=== PATIENT | male | born 1985 | race Caucasian/White ===

== ENCOUNTER 2016-12-18 18:42 | Emergency (ER) | payer OTHER ==
--- NOTE | 2016-12-18 19:52 | ED NURSING NOTES ---
Clinical Report - Nurses [facility] [place] [address] 12/18/2016 18:44 Patient: JAYMIE KING TRIAGE Triage time 18:49. Acuity: LEVEL 3. Chief Complaint: (LEFT FLANK PAIN). Alert. PIERCE COMA SCORE: Pierce Coma Scale: 15- eyes open spontaneously (4); best verbal response- oriented x 4 (5); best motor response- obeys commands (6). --18:54 Marguerite Mancilla R.N. 18:48 12/18/16. BP: 151/100. HR: 68. RR: 20. O2 saturation: 100%. Temp: 97.8 F (oral). Pain level now: 07/22. --18:54 Marguerite Mancilla R.N. Weight: 92.9 kg stated. Height/Length: 70 inches Per Patient. BMI: 29.4. --18:51 Marguerite Mancilla R.N. Medications Flomax Oral. Zofran Oral. --18:50 Marguerite Mancilla R.N. None. --18:51 Marguerite Mancilla R.N. Medication/allergy information source: the patient. --18:54 Marguerite Mancilla R.N. Allergies No Known Drug Allergy. --18:51 Marguerite Mancilla R.N. History Arrived by private vehicle. Historian: patient. Accompanied by family. Primary physician (none). Onset. (about 1 hour). Treatment [address] MONITOR: (Flomax, zofran). SOCIAL HX: Smoker- current status unknown (no). Occasional alcohol use. No drug use. FALL RISK ASSESSMENT: Fall risk assessment completed. No fall risk identified. FUNCTIONAL ASSESSMENT: Functional assessment: no impairments noted. LEARNING NEEDS ASSESSMENT: The learning needs assessment revealed no barriers. --18:54 Marguerite Mancilla R.N. PROBLEMS: Nephrolithiasis. --18:50 Marguerite Mancilla R.N. ADDITIONAL SURGERIES: no known surgeries. Assessment GENERAL / NEURO / PSYCH: The patient is awake and alert, is oriented and cooperative and appears uncomfortable. He has good eye contact. RESPIRATORY: Respirations not labored. SKIN: Skin is warm and dry. --18:54 Marguerite Mancilla R.N. Interventions ID band on patient. To treatment room. --18:54 Marguerite Mancilla R.N. PHYSICAL ASSESSMENT 18:57 12/18/16. Ambulatory to room. Patient gowned. GENERAL / NEURO / PSYCH: The patient is awake and alert, appears in pain and is oriented and cooperative. He has good eye contact. RESPIRATORY: Respirations not labored. SKIN: Skin is warm and dry. --18:57 Marguerite Mancilla R.N. NURSING PROGRESS NOTES 18:57 12/18/16. Pulse oximeter and NIBP monitor placed on patient. Patient gowned. Head of bed elevated. Call light placed in reach. Side rails up x 1. Bed placed in lowest position. Brakes of bed on. --18:57 Marguerite Mancilla R.N. 19:12/18/2016 Site #1 started via IV in the right antecubital space with an 18g angiocath; one attempt. Blood drawn: rainbow set. Labeled in the presence of the patient and sent to the lab. Saline lock flushed with 10 mL saline. --19:05 Sergio Martini R.N. 19:05 12/18/2016 Toradol IVP 30 mg given. via site #1. Allergies verified and confirmed 5 rights. IV patency established. IV site checked: no pain, redness, or swelling. IV flushed thoroughly pre- and post-medication administration. IVP given by RN. --19:05 Sergio Martini R.N. 19:49 12/18/2016 Dilaudid (HYDROmorphone HCl PF) IVP 1 mg given over 2 minute(s) via site #1. Allergies verified, confirmed 5 rights and sedative warning given to the patient. IV patency established. IV site checked: no pain, redness, or swelling. IV flushed thoroughly pre- and post-medication administration. IVP given by RN. --19:49 Sergio Martini R.N. Reassurance given. Call light placed in reach. Side rails up x 1. Bed placed in lowest position. Brakes of bed on. --19:50 Sergio Martini R.N. 19:50 12/18/16. BP: 132/75. HR: 86. RR: 16. O2 saturation: 99%. Pain level now: 05/21. --19:50 Sergio Martini R.N. 20:00. The patient is calm and resting quietly. SKIN: Skin is warm and dry. Skin color within normal limits. --20:04 Evan Chase R.N. DISPOSITION / DISCHARGE Departure time: 20:03. Condition at departure: stable. No learning barriers present. Discharge instructions provided and reviewed with the patient. Reviewed medication(s) side effects, precautions, dosing and course information. Prescription(s) given to the patient. Patient verbalized understanding. Written instructions provided in Spanish. The patient was discharged home and accompanied by holistic pulser. He left the Emergency Department ambulatory and via private vehicle. Fundraising Officer driving. FALL RISK ASSESSMENT: Fall risk assessment completed. No fall risk identified. --20:03 Evan Chase R.N. 19:53 12/18/16. BP: 134/78. HR: 88. RR: 16. O2 saturation: 95% on room air. Pain level now: 01/19. --20:03 Evan Chase R.N. 19:57 12/18/2016 Site #1 removed upon discharge. Catheter intact. Bandage applied. --20:03 Evan Chase R.N. Locked/Released at 12/18/2016 20:04 by Evan Chase R.N.
--- NOTE | 2016-12-18 19:52 | ED NURSING NOTES ---
Clinical Report - Nurses [facility] [place] [address] 12/18/2016 18:44 Patient: JAYMIE KING TRIAGE Triage time 18:49. Acuity: LEVEL 3. Chief Complaint: (LEFT FLANK PAIN). Alert. PIERCE COMA SCORE: Pierce Coma Scale: 15- eyes open spontaneously (4); best verbal response- oriented x 4 (5); best motor response- obeys commands (6). --18:54 Marguerite Mancilla R.N. 18:48 12/18/16. BP: 151/100. HR: 68. RR: 20. O2 saturation: 100%. Temp: 97.8 F (oral). Pain level now: 07/22. --18:54 Marguerite Mancilla R.N. Weight: 92.9 kg stated. Height/Length: 70 inches Per Patient. BMI: 29.4. --18:51 Marguerite Mancilla R.N. Medications Flomax Oral. Zofran Oral. --18:50 Marguerite Mancilla R.N. None. --18:51 Marguerite Mancilla R.N. Medication/allergy information source: the patient. --18:54 Marguerite Mancilla R.N. Allergies No Known Drug Allergy. --18:51 Marguerite Mancilla R.N. History Arrived by private vehicle. Historian: patient. Accompanied by family. Primary physician (none). Onset. (about 1 hour). 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 SOCIAL HX: Smoker- current status unknown (no). Occasional alcohol use. No drug use. FALL RISK ASSESSMENT: Fall risk assessment completed. No fall risk identified. FUNCTIONAL ASSESSMENT: Functional assessment: no impairments noted. LEARNING NEEDS ASSESSMENT: The learning needs assessment revealed no barriers. --18:54 Marguerite Mancilla R.N. PROBLEMS: Nephrolithiasis. --18:50 Marguerite Mancilla R.N. ADDITIONAL SURGERIES: no known surgeries. Assessment GENERAL / NEURO / PSYCH: The patient is awake and alert, is oriented and cooperative and appears uncomfortable. He has good eye contact. RESPIRATORY: Respirations not labored. SKIN: Skin is warm and dry. --18:54 Marguerite Mancilla R.N. Interventions ID band on patient. To treatment room. --18:54 Marguerite Mancilla R.N. PHYSICAL ASSESSMENT 18:57 12/18/16. Ambulatory to room. Patient gowned. GENERAL / NEURO / PSYCH: The patient is awake and alert, appears in pain and is oriented and cooperative. He has good eye contact. RESPIRATORY: Respirations not labored. SKIN: Skin is warm and dry. --18:57 Marguerite Mancilla R.N. NURSING PROGRESS NOTES 18:57 12/18/16. Pulse oximeter and NIBP monitor placed on patient. Patient gowned. Head of bed elevated. Call light placed in reach. Side rails up x 1. Bed placed in lowest position. Brakes of bed on. --18:57 Marguerite Mancilla R.N. 19:12/18/2016 Site #1 started via IV in the right antecubital space with an 18g angiocath; one attempt. Blood drawn: rainbow set. Labeled in the presence of the patient and sent to the lab. Saline lock flushed with 10 mL saline. --19:05 Sergio Martini R.N. 19:05 12/18/2016 Toradol IVP 30 mg given. via site #1. Allergies verified and confirmed 5 rights. IV patency established. IV site checked: no pain, redness, or swelling. IV flushed thoroughly pre- and post-medication administration. IVP given by RN. --19:05 Sergio Martini R.N. 19:49 12/18/2016 Dilaudid (HYDROmorphone HCl PF) IVP 1 mg given over 2 minute(s) via site #1. Allergies verified, confirmed 5 rights and sedative warning given to the patient. IV patency established. IV site checked: no pain, redness, or swelling. IV flushed thoroughly pre- and post-medication administration. IVP given by RN. --19:49 Sergio Martini R.N. Reassurance given. Call light placed in reach. Side rails up x 1. Bed placed in lowest position. Brakes of bed on. --19:50 Sergio Martini R.N. 19:50 12/18/16. BP: 132/75. HR: 86. RR: 16. O2 saturation: 99%. Pain level now: 05/21. --19:50 Sergio Martini R.N. 20:00. The patient is calm and resting quietly. SKIN: Skin is warm and dry. Skin color within normal limits. --20:04 Evan Chase R.N. DISPOSITION / DISCHARGE Departure time: 20:03. Condition at departure: stable. No learning barriers present. Discharge instructions provided and reviewed with the patient. Reviewed medication(s) side effects, precautions, dosing and course information. Prescription(s) given to the patient. Patient verbalized understanding. Written instructions provided in Kinyarwanda. The patient was discharged home and accompanied by transition teacher. He left the Emergency Department ambulatory and via private vehicle. Automated Manufacturing Instructor driving. FALL RISK ASSESSMENT: Fall risk assessment completed. No fall risk identified. --20:03 Evan Chase R.N. 19:53 12/18/16. BP: 134/78. HR: 88. RR: 16. O2 saturation: 95% on room air. Pain level now: 01/19. --20:03 Evan Chase R.N. 19:57 12/18/2016 Site #1 removed upon discharge. Catheter intact. Bandage applied. --20:03 Evan Chase R.N. Locked/Released at 12/18/2016 20:04 by Evan Chase R.N.
--- NOTE | 2016-12-18 19:52 | ED CLINICAL REPORT ---
Clinical Report - Physicians/Mid Levels [facility] [address] [place] [address] 12/18/2016 18:44 Patient: JAYMIE KING Time Seen: 18:55 Dec 18 2016. Arrived- By private vehicle. Historian- patient. HISTORY OF PRESENT ILLNESS Chief Complaint: FLANK PAIN. This started just prior to arrival and is still present. It is described as sharp and it is described as located in the left flank. No nausea, loss of appetite, vomiting or diarrhea. (31-year-old male, who presents they are one hour prior to arrivalsustaining pain to the left flank, history of similar with nephrolithiasis, which most of the time he is able to pass on his own, with no history of procedures to his kidneys. Patient recently moved here from [place], [place]. Zofran odt 8 mg prior to arrival.). Similar symptoms previously: Many times. REVIEW OF SYSTEMS No constipation, black stools, hematemesis, difficulty with urination or pain with urination. No fever, headache, chest pain or chills. All systems otherwise negative, except as recorded above. PAST HISTORY Problems: Nephrolithiasis. Additional Surgeries: no known surgeries. Medications: None. Flomax Oral. Zofran Oral. Allergies: No Known Drug Allergy. SOCIAL HISTORY No alcohol use or drug use. ADDITIONAL NOTES The nursing notes have been reviewed. PHYSICAL EXAM Vital Signs: 12/18/2016 18:48 BP: 151/100. HR: 68. RR: 20. O2 saturation: 100%. Temp: 97.8 F. Pain level now: 9/10. Appearance: Alert. Eyes: Eyes normal inspection. ENT: Nose normal. Neck: Normal inspection. Neck supple. CVS: Normal heart rate and rhythm. Heart sounds normal. Rate normal. Respiratory: No respiratory distress. Breath sounds normal. Chest nontender. No accessory muscle use or decreased air movement. Back: Normal inspection. No CVA tenderness. Skin: Skin warm. Normal skin color. LABS, X-RAYS, AND EKG Laboratory Tests: UA-Culture if indicated: (JOSUE: 12/18/2016 19:25) ( NdgRcvd 12/18/2016 19:51) Final results Test Result Flag Units (Reference) URINE COLOR YELLOW URINE APPEARANCE SL CLOUDY URINE GLUCOSE NEGATIVE (NEGATIVE) URINE BILIRUBIN NEGATIVE (NEGATIVE) URINE KETONE NEGATIVE (NEGATIVE) URINE SPECIFIC GRAVITY >= 1.030 (1.010-1.030) URINE PH 6.0 (5.0-8.0) URINE PROTEIN 1+ (NEGATIVE) URINE UROBILINOGEN 0.2 EU/dL (0.2-1.0) URINE NITRITE NEGATIVE (NEGATIVE) URINE BLOOD 3+ (NEGATIVE) URINE LEUK ESTERASE NEGATIVE (NEGATIVE) URINE RBC >100 rbc/hpf (0-1) URINE WBC 3-5 wbc/hpf (0-1) URINE EPITHELIAL CELLS 0-1 EPI/hpf (0-5) URINE BACTERIA NONE SEEN (NONE SEEN) URINE COMMENT CULT NOT INDICATED URINE CULTURES ARE SET-UP BASED ON THE FOLLOWING CRITERIA:POSITIVE NITRITEPOSITIVE LEUKOCYTE ESTERASEGREATER THAN 10 WHITE BLOOD CELLSMODERATE (2+) OR GREATER BACTERIA CBC w Diff: (JOSUE: 12/18/2016 19:05) ( MsgRcvd 12/18/2016 19:29) Final results Test Result Flag Units (Reference) WHITE BLOOD COUNT 9.5 K/uL (4.5-11.5) RED BLOOD COUNT 4.82 M/uL (4.50-5.90) HEMOGLOBIN 14.6 gm/dL (13.5-17.5) HEMATOCRIT 43.3 % (41.0-53.0) MEAN CELL VOLUME 90 fL (80-100) MEAN CORPUSCULAR HGB 30 pg (26-34) MEAN CORPUSCULAR HGB CONC 34 g/dL (31-37) RED CELL DISTRIBUTION WIDTH 13.6 % (11.6-14.8) PLATELET COUNT 250 K/uL (150-400) NEUTROPHIL % 64.6 % (50-75) LYMPH % 20.0 L % (25-40) MONO % 10.8 % (3-14) EOSINOPHIL % 4.3 H % (0-4) BASOPHIL % 0.3 % (0-2) BMP: (JOSUE: 12/18/2016 19:05) ( MsgRcvd 12/18/2016 19:39) Final results Test Result Flag Units (Reference) GLUCOSE 137 H mg/dL (70-110) BUN 17 mg/dL (7-18) CREATININE 1.3 mg/dL (0.6-1.3) Estimated GFR >60 mL/min Estimated GFR- >60 mL/min Note: Persistent reduction over 3 months in eGFR<60 mL/min/1.73 m2 defines CKD. Patients with eGFR values>=60 mL/min/1.73 m2 may also have CKD if evidence ofpersistent proteinuria. Additional information may be foundat www.kidney.org. SODIUM 140 mmol/L (136-145) POTASSIUM 3.9 mmol/L (3.5-5.1) CHLORIDE 103 mmol/L (98-107) CARBON DIOXIDE 27 mmol/L (21-32) CALCIUM 8.9 mg/dL (8.5-10.1) . PROGRESS AND PROCEDURES Course of Care: Patient here with cloudy urine, with signs of nephrolithiasis, has had such in the past, able to usually pass on his own, offered imaging versus none at this time, we'll forego, patient to take medications, pain control, no signs of septic stone, afebrile. Patient stable. Follow-up with urology. Toradol 30 mg iv Dilauidid 1 mg iv. 12/18/2016 19:50 BP: 132/75. HR: 86. RR: 16. O2 saturation: 99%. Pain level now: 7/10. Patient is stable. Symptoms better. Patient/family counseled. Differential Diagnosis: I considered gastroenteritis, acute appendicitis, diverticulitis, colon cancer, ulcerative colitis, intussusception, adhesions, bowel ischemia, functional bowel problems, obstipation, biliary colic, hepatitis, splenic injury, intraabdominal abscess, ascites, urinary tract infection and cystitis as a possible cause of abdominal pain in this patient. This is a partial list of diagnoses considered. Disposition: Discharged. CLINICAL IMPRESSION Ureterolithiasis on the left with renal colic. INSTRUCTIONS Drink plenty of fluids. (urology follow up : [phone]). Prescription Medications: Hydrocodone/APAP 7.5mg / 325mg: take 1 orally every 6 hours as needed for pain. Dispense twenty (20). No refill. Zofran (orally disintegrating tablets) 4 mg: take 1-2 orally every 6 hours for 5 days as needed for nausea. Dispense twenty (20). No refill. Substitution is permissible. Flomax 0.4 mg: take 1 orally every 24 hours. Dispense fifteen (15). No refills. Substitution is permissible. Follow-up: Follow up with a specialist. (Electronically signed by Rosanne Ford P.A.-C 12/18/2016 19:53)
--- NOTE | 2016-12-18 19:52 | ED ORDER SUMMARY ---
..... Patient: JAYMIE KING OrderSheet [facility] VisitID: [id number] [place] [address] 31y, M Registration Date/Time: 12/18/2016 ORDER SHEET Weight: 92.9 kg (stated) Allergies: No Known Drug Allergy GENERAL ORDERS: CBC w Diff Urgent (18:51 12/18/2016 EKoroleva P.A.-C) (Ack 18:53 LNations ER Tech1) (19:09 HOShaughnessy R.N.) BMP Urgent (18:51 12/18/2016 EKoroleva P.A.-C) (Ack 18:53 LNations ER Tech1) (19:09 HOShaughnessy R.N.) UA-Culture if indicated Urgent (18:51 12/18/2016 EKoroleva P.A.-C) (Ack 18:53 LNations ER Tech1) (19:47 HOShaughnessy R.N.) - (urinary strainer) (19:43 12/18/2016 EKoroleva P.A.-C) (Ack 19:45 AMcQuoid ER Tech1) (19:47 HOShaughnessy R.N.) MEDICATION ORDERS: IV FLUIDS: Toradol IV 30 mg (NOW) (18:51 12/18/2016 EKoroleva P.A.-C) (19:05 HOShaughnessy R.N.) IV Saline Lock (18:51 12/18/2016 EKoroleva P.A.-C) (19:10 HOShaughnessy R.N.) Dilaudid IV 1 mg (HIGH ALERT MEDICATION, NOW) (19:44 12/18/2016 EKoroleva P.A.-C) (19:49 HOShaughnessy R.N.) ORDER SHEET NOTES: [Electronically signed by Rosanne Ford P.A.-C (19:53 12/18/2016)] [Electronically signed by Evan Chase R.N. (20:04 12/18/2016)] [Electronically locked/signed by Evan Chase R.N. (20:04 12/18/2016)]
--- NOTE | 2016-12-18 19:52 | ED ORDER SUMMARY ---
..... Patient: JAYMIE KING OrderSheet [facility] VisitID: [id number] [place] [address] 31y, M Registration Date/Time: 12/18/2016 ORDER SHEET Weight: 92.9 kg (stated) Allergies: No Known Drug Allergy GENERAL ORDERS: CBC w Diff Urgent (18:51 12/18/2016 EKoroleva P.A.-C) (Ack 18:53 LNations ER Tech1) (19:09 HOShaughnessy R.N.) BMP Urgent (18:51 12/18/2016 EKoroleva P.A.-C) (Ack 18:53 LNations ER Tech1) (19:09 HOShaughnessy R.N.) UA-Culture if indicated Urgent (18:51 12/18/2016 EKoroleva P.A.-C) (Ack 18:53 LNations ER Tech1) (19:47 HOShaughnessy R.N.) - (urinary strainer) (19:43 12/18/2016 EKoroleva P.A.-C) (Ack 19:45 AMcQuoid ER Tech1) (19:47 HOShaughnessy R.N.) MEDICATION ORDERS: IV FLUIDS: Toradol IV 30 mg (NOW) (18:51 12/18/2016 EKoroleva P.A.-C) (19:05 HOShaughnessy R.N.) IV Saline Lock (18:51 12/18/2016 EKoroleva P.A.-C) (19:10 HOShaughnessy R.N.) Dilaudid IV 1 mg (HIGH ALERT MEDICATION, NOW) (19:44 12/18/2016 EKoroleva P.A.-C) (19:49 HOShaughnessy R.N.) ORDER SHEET NOTES: [Electronically signed by Rosanne Ford P.A.-C (19:53 12/18/2016)] [Electronically signed by Evan Chase R.N. (20:04 12/18/2016)] [Electronically locked/signed by Evan Chase R.N. (20:04 12/18/2016)]
--- NOTE | 2016-12-18 20:05 | ED MAR SUMMARY ---
..... Medication Administration Record [facility] [address] [place] [address] Patient: JAYMIE KING Visit ID: [id number] 31y, M Weight: 92.9 kg Height/Length: 70 in BMI: 29.4 ALLERGIES: No Known Drug Allergy Given 19:05 12/18/2016 Sergio Martini, RSeraN. Medication Administered: TORADOL [IVP], Dose: 30 mg IVP, Site: #1 right AC. Medication Ordered: Toradol IV 30 mg (NOW). Given 19:49 12/18/2016 Sergio Martini, R.N. Medication Administered: DILAUDID [IVP] (HYDROMORPHONE HCL PF), Dose: 1 mg IVP over 2 minute(s), Site: #1 right AC. Medication Ordered: Dilaudid IV 1 mg (HIGH ALERT MEDICATION, NOW).
--- NOTE | 2016-12-18 20:05 | ED MAR SUMMARY ---
..... Medication Administration Record [facility] [address] [place] [address] Patient: JAYMIE KING Visit ID: [id number] 31y, M Weight: 92.9 kg Height/Length: 70 in BMI: 29.4 ALLERGIES: No Known Drug Allergy Given 19:05 12/18/2016 Sergio Martini, RSeraN. Medication Administered: TORADOL [IVP], Dose: 30 mg IVP, Site: #1 right AC. Medication Ordered: Toradol IV 30 mg (NOW). Given 19:49 12/18/2016 Sergio Martini, R.N. Medication Administered: DILAUDID [IVP] (HYDROMORPHONE HCL PF), Dose: 1 mg IVP over 2 minute(s), Site: #1 right AC. Medication Ordered: Dilaudid IV 1 mg (HIGH ALERT MEDICATION, NOW).
--- NOTE | 2016-12-18 20:05 | ED MED RECONCILIATION SUMMARY ---
Patient: JAYMIE KING Medication Reconciliation Report [facility] VisitID: [id number] [address] [place] [address] 31y, M Registration Date/Time: 12/18/2016 Weight: 92.9 kg Height/Length: 70 in. BMI: 29.4 ALLERGIES: No Known Drug Allergy The patient's Home Medications are listed below: THE FOLLOWING MEDICATIONS NEED TO BE RECONCILED: Flomax Oral Zofran Oral The source(s) of the original Home Medication information: patient The following Medications were given to the patient in the Emergency Department: Toradol [IVP] IVP 30 mg, administered: 12/18/2016 7:05:00 PM Dilaudid [IVP] IVP 1 mg, administered: 12/18/2016 7:49:00 PM The following Medications were prescribed to the patient: Hydrocodone/APAP 7.5mg / 325mg: take 1 orally every 6 hours as needed for pain. Dispense twenty (20). No refill. -- Rosanne Ford, P.A.-Kurtis Zofran (orally disintegrating tablets) 4 mg: take 1-2 orally every 6 hours for 5 days as needed for nausea. Dispense twenty (20). No refill. Substitution is permissible. -- Rosanne Ford, P.A.-Kurtis Flomax 0.4 mg: take 1 orally every 24 hours. Dispense fifteen (15). No refills. Substitution is permissible. -- Rosanne Ford P.A.-Kurtis
--- NOTE | 2016-12-18 20:05 | ED DISCHARGE INSTRUCTIONS ---
Patient: JAYMIE KING General Instructions [facility] VisitID: [id number] [place] [address] 31y, M Registration Date/Time: 12/18/2016 Ureterolithiasis on the left with renal colic. INSTRUCTIONS Drink plenty of fluids. (urology follow up : [phone]). Prescription Medications: Hydrocodone/APAP 7.5mg / 325mg: take 1 orally every 6 hours as needed for pain. Dispense twenty (20). No refill. Zofran (orally disintegrating tablets) 4 mg: take 1-2 orally every 6 hours for 5 days as needed for nausea. Dispense twenty (20). No refill. Substitution is permissible. Flomax 0.4 mg: take 1 orally every 24 hours. Dispense fifteen (15). No refills. Substitution is permissible. Follow-up: Follow up with a specialist. ADDITIONAL INFORMATION Kidney Stone (W/ Colic) The sharp cramping pain and nausea/vomiting that you have is due to a small stone which has formed in the kidney and is now passing down a narrow tube (ureter) on its way to your bladder. Once it reaches your bladder, the pain will stop. The stone may pass in your urine stream in one piece. [The size may be 1/16" to 1/4" (1-6mm)]. Or, the stone may also break up into demian fragments which you may not even notice. Once you have had a kidney stone, you are at risk for developing another one in the future. Home Care: Drink plenty of fluids (at least 8 to 10 glasses of water a day). Most stones will pass on their own, but may take from a few hours to a few days. Sometimes the stone is too large to pass by itself and special methods will have to be used to remove the stone. Each time you urinate, do so in a jar. Pour the urine from the jar through the strainer and into the toilet. Continue doing this until 24 hours after your pain stops. By then, if there was a kidney stone, it should pass from your bladder. Some stones dissolve into sand-like particles and pass right through the strainer. In that case, you wont ever see a stone. Save any stone that you find in the strainer and bring it to your doctor for analysis. It may be possible to prevent certain types of stones from forming. Therefore, it is important to know what kind of stone you have. Try to stay as active as possible since this will help the stone pass. Do not stay in bed unless your pain prevents you from getting up. You may notice a red, pink or brown color to your urine. This is normal while passing a kidney stone. Follow Up with your doctor or return to this facility if the pain lasts more than 48 hours. Get Prompt Medical Attention if any of the following occur: Pain that is not controlled by the medicine given Repeated vomiting or unable to keep down fluids Weakness, dizziness or fainting Fever of 100.4F (38C) or higher, or as directed by your healthcare provider Passage of solid red or brown urine (can't see through it) or urine with lots of blood clots Unable to pass urine for 8 hours and increasing bladder pressure Blood In The Urine Blood in the urine ("hematuria") has many possible causes. If it occurs after an injury (such as a car accident or fall), it is most often a sign of bruising to the kidney or bladder. Common medical causes of blood in the urine include urinary tract infection, kidney stone, inflammation, tumors, or certain other diseases of the kidney or bladder. Menstruation can cause blood to appear in the urine sample, although it is not coming from the urinary tract. If only a trace amount of blood is present, it will show up on the urine test, even though the urine may be yellow and not pink or red. This may occur with any of the above conditions, as well as heavy exercise or high fever. In this case, your doctor may want to repeat the urine test on another day. This will show if the blood is still present. If so, then other tests can be done to find out the cause. Home Care: If your urine does not appear bloody (pink, brown or red) then you do not need to restrict your activity in any way. If you can see blood in your urine, rest and avoid heavy exertion until your next exam. Do not use aspirin or anti-inflammatory medicine like ibuprofen (Motrin, Advil) or naproxen (Naprosyn, Aleve). These thin the blood and may increase bleeding. Follow Up with your doctor or as advised by our staff. If you were injured and had blood in your urine, you should have a repeat urine test in 1-2 days. Contact your doctor or return to this facility for this test. [NOTE: A radiologist will review any X-rays that were taken. We will notify you of any new findings that may affect your care.] Get Prompt Medical Attention if any of the following occur: Bright red blood or blood clots in the urine (if a new symptom) Weakness, dizziness or fainting New groin, abdominal or back pain Fever of 100.4F (38C) or higher, or as directed by your healthcare provider Repeated vomiting Bleeding from nose, gums or easy bruising Clear Liquid Diet Clear liquids are any liquid that you can see through as well as those that are very easy to digest. This is used while the body is recovering from irritation or infection of the stomach or intestinal tract. It may also be used before special procedures or surgery. This diet is to be used no more than three days. You may include the following items. Adults Adults should drink a total of 23 quarts of liquid per day. It may be easier to drink small frequent servings rather than a few large ones. Liquids can include: Fruit juices.Strained orange juice or lemonade (no pulp), apple, grape and cranberry juice, clear fruit drinks, sports drinks Beverages.Sport drinks, sodas, mineral water (plain or flavored), tea, black coffee, liquid gelatin (add twice the recommended amount of water) Soups.Clear broth, consomm, bouillon Desserts.Plain gelatin, popsicles, fruit juice bars Children Over 2 years old The following liquids are acceptable for children over age 2: Fruit juices.Strained orange juice or lemonade (no pulp), apple, grape and cranberry juice, clear fruit drinks Beverages. Sports drinks, sodas, mineral water (plain or flavored), tea, liquid gelatin (add twice the recommended amount of water) Soups. Clear broth, consomm, bouillon Desserts. Plain gelatin, popsicles, fruit juice bars Children under 2 years old Oral rehydration fluids such are available at drug stores and most grocery stores without a prescription. Hydrocodone Bitartrate, Acetaminophen Oral tablet What is this medicine? ACETAMINOPHEN; HYDROCODONE (a set a QUINCY albert fen; bobby CORTES done) is a pain reliever. It is used to treat mild to moderate pain. How should I use this medicine? Take this medicine by mouth. Swallow it with a full glass of water. Follow the directions on the prescription label. If the medicine upsets your stomach, take the medicine with food or milk. Do not take more than you are told to take. Talk to your service worker helper regarding the use of this medicine in children. This medicine is not approved for use in children. What side effects may I notice from receiving this medicine? Side effects that you should report to your doctor or health residential care facility manager as soon as possible: allergic reactions like skin rash, itching or hives, swelling of the face, lips, or tongue breathing problems confusion feeling faint or lightheaded, falls stomach pain yellowing of the eyes or skin Side effects that usually do not require medical attention (report to your doctor or health residential care facility manager if they continue or are bothersome): nausea, vomiting stomach upset What may interact with this medicine? alcohol antihistamines isoniazid medicines for depression, anxiety, or psychotic disturbances medicines for sleep muscle relaxants naltrexone narcotic medicines (opiates) for pain phenobarbital ritonavir tramadol What if I miss a dose? If you miss a dose, take it as soon as you can. If it is almost time for your next dose, take only that dose. Do not take double or extra doses. Where should I keep my medicine? Keep out of the reach of children. This medicine can be abused. Keep your medicine in a safe place to protect it from theft. Do not share this medicine with anyone. Selling or giving away this medicine is dangerous and against the law. Store at room temperature between 15 and 30 degrees C (59 and 86 degrees F). Protect from light. Keep container tightly closed. Throw away any unused medicine after the expiration date. Discard unused medicine and used packaging carefully. Pets and children can be harmed if they find used or lost packages. What should I tell my health care provider before I take this medicine? They need to know if you have any of these conditions: brain tumor Crohn's disease, inflammatory bowel disease, or ulcerative colitis drink more than 3 alcohol-containing drinks per day drug abuse or addiction head injury heart or circulation problems kidney disease or problems going to the bathroom liver disease lung disease, asthma, or breathing problems an unusual or allergic reaction to acetaminophen, hydrocodone, other opioid analgesics, other medicines, foods, dyes, or preservatives or trying to get breast-feeding What should I watch for while using this medicine? Tell your doctor or health residential care facility manager if your pain does not go away, if it gets worse, or if you have new or a different type of pain. You may develop tolerance to the medicine. Tolerance means that you will need a higher dose of the medicine for pain relief. Tolerance is normal and is expected if you take the medicine for a long time. Do not suddenly stop taking your medicine because you may develop a severe reaction. Your body becomes used to the medicine. This does NOT mean you are addicted. Addiction is a behavior related to getting and using a drug for a non-medical reason. If you have pain, you have a medical reason to take pain medicine. Your doctor will tell you how much medicine to take. If your doctor wants you to stop the medicine, the dose will be slowly lowered over time to avoid any side effects. You may get drowsy or dizzy when you first start taking the medicine or change doses. Do not drive, use machinery, or do anything that may be dangerous until you know how the medicine affects you. Stand or sit up slowly. There are different types of narcotic medicines (opiates) for pain. If you take more than one type at the same time, you may have more side effects. Give your health care provider a list of all medicines you use. Your doctor will tell you how much medicine to take. Do not take more medicine than directed. Call emergency for help if you have problems breathing. The medicine will cause constipation. Try to have a bowel movement at least every 2 to 3 days. If you do not have a bowel movement for 3 days, call your doctor or health residential care facility manager. Too much acetaminophen can be very dangerous. Do not take Tylenol (acetaminophen) or medicines that contain acetaminophen with this medicine. Many non-prescription medicines contain acetaminophen. Always read the labels carefully. Ondansetron Hydrochloride Oral tablet What is this medicine? ONDANSETRON (on AKASH se barbara) is used to treat nausea and vomiting caused by chemotherapy. It is also used to prevent or treat nausea and vomiting after surgery. How should I use this medicine? Take this medicine by mouth with a glass of water. Follow the directions on your prescription label. Take your doses at regular intervals. Do not take your medicine more often than directed. Talk to your service worker helper regarding the use of this medicine in children. Special care may be needed. What side effects may I notice from receiving this medicine? Side effects that you should report to your doctor or health residential care facility manager as soon as possible: allergic reactions like skin rash, itching or hives, swelling of the face, lips or tongue breathing problems dizziness fast or irregular heartbeat feeling faint or lightheaded, falls fever and chills swelling of the hands or feet tightness in the chest Side effects that usually do not require medical attention (report to your doctor or health residential care facility manager if they continue or are bothersome): constipation or diarrhea headache What may interact with this medicine? Do not take this medicine with any of the following medications: -apomorphine -cisapride -dofetilide -dronedarone -pimozide -thioridazine -ziprasidone This medicine may also interact with the following medications: -carbamazepine -phenytoin -rifampicin -tramadol -other medicines that prolong the QT interval (cause an abnormal heart rhythm) What if I miss a dose? If you miss a dose, take it as soon as you can. If it is almost time for your next dose, take only that dose. Do not take double or extra doses. Where should I keep my medicine? Keep out of the reach of children. Store between 2 and 30 degrees C (36 and 86 degrees F). Throw away any unused medicine after the expiration date. What should I tell my health care provider before I take this medicine? They need to know if you have any of these conditions: heart disease history of irregular heartbeat liver disease low levels of magnesium or potassium in the blood an unusual or allergic reaction to ondansetron, granisetron, other medicines, foods, dyes, or preservatives or trying to get breast-feeding What should I watch for while using this medicine? Check with your doctor or health residential care facility manager right away if you have any sign of an allergic reaction. You have been given the following additional information: Kidney Stone W/ Colic Hematuria Diet, Clear Liquid Hydrocodone Bitartrate, Acetaminophen Oral tablet Ondansetron Hydrochloride Oral tablet (Electronically signed by Rosanne Ford P.A.-C 12/18/2016 19:53)
--- NOTE | 2016-12-18 20:05 | ED MED RECONCILIATION SUMMARY ---
Patient: JAYMIE KING Medication Reconciliation Report [facility] VisitID: [id number] [address] [place] [address] 31y, M Registration Date/Time: 12/18/2016 Weight: 92.9 kg Height/Length: 70 in. BMI: 29.4 ALLERGIES: No Known Drug Allergy The patient's Home Medications are listed below: THE FOLLOWING MEDICATIONS NEED TO BE RECONCILED: Flomax Oral Zofran Oral The source(s) of the original Home Medication information: patient The following Medications were given to the patient in the Emergency Department: Toradol [IVP] IVP 30 mg, administered: 12/18/2016 7:05:00 PM Dilaudid [IVP] IVP 1 mg, administered: 12/18/2016 7:49:00 PM The following Medications were prescribed to the patient: Hydrocodone/APAP 7.5mg / 325mg: take 1 orally every 6 hours as needed for pain. Dispense twenty (20). No refill. -- Rosanne Ford, P.A.-Kurtis Zofran (orally disintegrating tablets) 4 mg: take 1-2 orally every 6 hours for 5 days as needed for nausea. Dispense twenty (20). No refill. Substitution is permissible. -- Rosanne Ford, P.A.-Kurtis Flomax 0.4 mg: take 1 orally every 24 hours. Dispense fifteen (15). No refills. Substitution is permissible. -- Rosanne Ford P.A.-Kurtis
== END 2016-12-18 20:03 | disposition home or self-care (01) ==
LOC: ED SRH 18:42
DX: N20.1 Calculus of ureter (principal); N23 Unspecified renal colic
CPT/HCPCS: 90004; 90047; 95059

== ENCOUNTER 2016-12-20 12:59 | Emergency (ER) | payer OTHER ==
--- NOTE | 2016-12-20 14:30 | DIAGNOSTIC IMAGING REPORT ---
PROCEDURE: CT ABDOMEN/PELVIS W/O CONTRAST INDICATION: Left flank pain, initial encounter TECHNIQUE: Noncontrast axial images were obtained of the entire abdomen and pelvis with sagittal and coronal reformations. COMPARISON: None. FINDINGS: ABDOMEN: 9.5 x 6.5 x 5.5 mm proximal left ureteral calculus with mild hydronephrosis, periureteral and perinephric edema . There are a couple of punctate nonobstructing bilateral renal calculi. Mild bibasilar atelectasis. Heart size is normal. Liver, gallbladder, pancreas, spleen and adrenal glands are normal. Normal abdominal aorta. There are shotty periaortic lymph nodes. Nonspecific bowel gas pattern. PELVIS: Normal appendix. Dense prostatic calcifications. Mild circumferential urinary bladder wall thickening. Small amount of free fluid the pelvis. No inflammatory changes. Mild degenerative changes of the spine. IMPRESSION: 1. 9.5 x 6.5 x 5.5 mm proximal left ureteral calculus with mild hydronephrosis 2. Bilateral punctate nonobstructing renal calculi 3. Mild urinary bladder wall thickening, likely due to lack of distention. Cystitis is also a consideration. 4. Small amount of free fluid the pelvis 5. Results discussed with Stephania Jimenez All CT scans at this facility use dose modulation, iterative reconstruction, and/or weight-based dosing when appropriate to reduce radiation dose to as low as reasonably achievable.
--- NOTE | 2016-12-20 14:37 | ED CLINICAL REPORT ---
Clinical Report - Physicians/Mid Levels [facility] [address] [place] [address] 12/20/2016 13:00 Patient: JAYMIE KING Time Seen: 13:33; upon arrival, initial patient contact, initial documentation, patient care assumed. Arrived- By private vehicle. Historian- patient. RETURN VISIT: recently seen in this ED by another ED physician. Seen now for the same problem as before. HISTORY OF PRESENT ILLNESS Chief Complaint: FLANK PAIN. At its maximum, severity described as severe. When seen in the E.D., severity described as severe. Modifying factors. Not worsened by anything. Not relieved by anything. It is described as "pain". No radiation. It is described as located in the left flank. This started about 2 - 3 days ago and is still present. No nausea, loss of appetite, vomiting or diarrhea. No additional abdominal pain. No recent travel. Similar symptoms previously: Chronically, milder. Recent medical care: The patient was seen recently at this facility in the emergency department. ( txed here 12/18, dx with kidney stone, but no ct done, pt here today for pain relief, taking vicoden, not much relief, doens't really want ct done, asked if we would change rx to percocet). REVIEW OF SYSTEMS No constipation, black stools, hematemesis, difficulty with urination or pain with urination. No urinary frequency, fever, chest pain or difficulty breathing. All systems otherwise negative, except as recorded above. PAST HISTORY See nurses notes. PROBLEMS: Ureterolithiasis. Nephrolithiasis. --13:30 Tee Santos R.N. ADDITIONAL SURGERIES: no known surgeries. SOCIAL HISTORY Never smoker. No alcohol use or drug use. No recent travel. Is a local resident. FAMILY HISTORY Negative. ADDITIONAL NOTES The nursing notes have been reviewed with agreement regarding the chief complaint, HPI, ROS, PMH and patient medications and allergies. PHYSICAL EXAM Vital Signs: 12/20/2016 13:28 BP: 130/74. HR: 72. RR: 16. O2 saturation: 100%. Temp: 98.2 F. Have been reviewed as normal and appear to be correct. Appearance: Alert. Oriented X3. No acute distress. Eyes: Pupils equal, round and reactive to light. Eyes normal inspection. Neck: Normal inspection. Neck supple. CVS: Normal heart rate and rhythm. Heart sounds normal. Pulses normal. Respiratory: No respiratory distress. Breath sounds normal. Chest nontender. Abdomen: Soft and nontender. Bowel sounds normal. No organomegaly. No mass. Back: Normal inspection. Skin: Skin warm and dry. Normal skin color. No rash. Normal skin turgor. Extremities: Extremities exhibit normal ROM. No lower extremity edema. Neuro: Oriented X 3. No motor deficit. No sensory deficit. LABS, X-RAYS, AND EKG Abdominal CT: . IMPRESSION: 1. 9.5 x 6.5 x 5.5 mm proximal left ureteral calculus with mild hydronephrosis 2. Bilateral punctate nonobstructing renal calculi 3. Mild urinary bladder wall thickening, likely due to lack of distention. Cystitis is also a consideration. 4. Small amount of free fluid the pelvis 5. Results discussed with Stephania Jimenez All CT scans at this facility use dose modulation, iterative reconstruction, and/or weight-based dosing when appropriate to reduce radiation dose to as low as reasonably achievable. Electronically Final signed by:Tommy May MD 12/20/2016 2:30:32 PM. The study was interpreted by the radiologist and discussed with the radiologist. Interpretation time: 1430. Laboratory Tests: UA-Culture if indicated: (JOSUE: 12/20/2016 13:30) ( [id number] 12/20/2016 14:01) Final results Test Result Flag Units (Reference) URINE COLOR YELLOW URINE APPEARANCE CLEAR URINE GLUCOSE NEGATIVE (NEGATIVE) URINE BILIRUBIN NEGATIVE (NEGATIVE) URINE KETONE NEGATIVE (NEGATIVE) URINE SPECIFIC GRAVITY 1.020 (1.010-1.030) URINE PH 6.0 (5.0-8.0) URINE PROTEIN NEGATIVE (NEGATIVE) URINE UROBILINOGEN 0.2 EU/dL (0.2-1.0) URINE NITRITE NEGATIVE (NEGATIVE) URINE BLOOD 2+ (NEGATIVE) URINE LEUK ESTERASE NEGATIVE (NEGATIVE) URINE RBC 5-10 rbc/hpf (0-1) URINE WBC 1-3 wbc/hpf (0-1) URINE EPITHELIAL CELLS NONE SEEN EPI/hpf (0-5) URINE BACTERIA TRACE (<1+) (NONE SEEN) URINE COMMENT CULT NOT INDICATED URINE CULTURES ARE SET-UP BASED ON THE FOLLOWING CRITERIA:POSITIVE NITRITEPOSITIVE LEUKOCYTE ESTERASEGREATER THAN 10 WHITE BLOOD CELLSMODERATE (2+) OR GREATER BACTERIA . PROGRESS AND PROCEDURES Course of Care: old er records reviewed. Patient and spouse counseled in person regarding the patient's stable condition, test results and diagnosis. 1435. Differential Diagnosis: I considered gastritis, peptic ulcer disease, splenic abscess, hernia, urinary tract infection, ureterolithiasis and viral syndrome as a possible cause of abdominal pain in this patient. This is a partial list of diagnoses considered. Other possible considerations: substance abuse. Above considerations are based on history and physical exam. Differential diagnosis was discussed with patient. Disposition: Discharged home in good and improved condition (14:37). Condition: good and stable. CLINICAL IMPRESSION Ureterolithiasis (single stone) in the left ureter with renal colic, hydronephrosis and hematuria. No acute pyelonephritis or urinary tract infection. INSTRUCTIONS Drink plenty of fluids for the next 24 hours until better. (continue to strain all urine, do NOT mix pain meds, and over the counter vitamin C, as discussed). Warnings: GENERAL WARNINGS: Return or contact your physician immediately if your condition worsens or changes unexpectedly, if not improving as expected, or if other problems arise. SPECIFICALLY, return if you develop pain in the abdomen or pelvis, fever, the inability to keep fluids down, blood in vomitus, blood in diarrhea, fainting or lightheadedness. Prescription Medications: Zofran 4 mg: Take 1 orally every six hours as needed for nausea/vomiting. Dispense ten (10). No refills. Substitution is permissible. Percocet 5 mg/325 mg: take 1 tablet orally every 6 hours as needed for pain. Dispense fifteen (15). No refills. Substitution is permissible. Toradol 10 mg tablets: Take 1 tablet orally every 6 hours as needed. Dispense fifteen (15). No refills. Substitution is permissible. Understanding of the discharge instructions verbalized by patient. Follow-up with: Checo Esquivel MD, Urology, , [address] [facility], , [place], [id number] Follow up tomorrow even if well. Call for an appointment. Summary of care provided to patient. (Electronically signed by Stephania Jimenez A.R.N.P. 12/20/2016 15:08)
--- NOTE | 2016-12-20 14:37 | ED NURSING NOTES ---
Clinical Report - Nurses [facility] [address] [place] [address] 12/20/2016 13:00 Patient: JAYMIE KING TRIAGE Triage time 13:28. Acuity: LEVEL 4. Chief Complaint: FLANK PAIN. 13:12/20/16. 13:12/20/16. Alert. ( Pt was seen on Sunday at this ER and diagnosed with a kidney stone. Pt states that his pain is not getting any better.). SEPSIS SCREEN: Sepsis Screen. Negative (no infection suspected/documented). PIERCE COMA SCORE: Pierce Coma Scale: 15- eyes open spontaneously (4); best verbal response- oriented x 4 (5); best motor response- obeys commands (6). --13:34 Tee Santos R.N. 13:28 12/20/16. BP: 130/74. HR: 72. RR: 16. O2 saturation: 100% on room air. Temp: 98.2 F (oral). --13:34 Tee Santos R.N. Weight: 92.9 kg stated. Height/Length: 70 inches Per Patient. BMI: 29.4. --13:30 Tee Santos R.N. Medications Flomax Oral. --13:30 Tee Santos R.N. Vicodin Oral, PRN. --13:30 Tee Santos R.N. Medication/allergy information source: the patient. --13:34 Tee Santos R.N. Allergies No Known Drug Allergy. --13:30 Tee Santos R.N. History Arrived by private vehicle. Historian: patient. Accompanied by family. Primary physician (NONE). 13:12/20/16. Last oral intake by patient was (1 hr ago). 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 PAST MEDICAL HX: Immunizations not up to date. SOCIAL HX: Never smoker. No alcohol use or drug use. No recent travel. No infectious disease exposure. No known contact with a sick individual. ABUSE ASSESSMENT: No report of abuse. FALL RISK ASSESSMENT: Fall risk assessment completed. No fall risk identified. NUTRITIONAL RISK ASSESSMENT: The nutritional risk assessment revealed no deficiencies. FUNCTIONAL ASSESSMENT: Functional assessment: no impairments noted. LEARNING NEEDS ASSESSMENT: The learning needs assessment revealed no barriers. SKIN INTEGRITY ASSESSMENT: Skin integrity risk assessment completed. No skin integrity risk identified. --13:34 Tee Santos R.N. PROBLEMS: Ureterolithiasis. Nephrolithiasis. --13:30 Tee Santos R.N. ADDITIONAL SURGERIES: no known surgeries. Assessment 13:12/20/16. --13:34 Tee Santos R.N. Interventions 13:12/20/16. 13:12/20/16. ID and allergy band on patient. To treatment room. --13:34 Tee Santos R.N. PHYSICAL ASSESSMENT Ambulatory to room. GENERAL / NEURO / PSYCH: Oriented X 4. Appears in pain. CVS: Capillary refill less than 2 seconds. SKIN: Skin is warm and dry. --13:31 Tee Santos R.N. NURSING PROGRESS NOTES 13:12/20/16. The plan of care for this patient has been created. Patient gowned. Head of bed elevated. Reassurance given. Two patient identifiers checked. Call light placed in reach. Side rails up x 2. Bed placed in lowest position. Brakes of bed on. Brakes of chair on. --13:31 Tee Santos R.N. 13:31 12/20/16. Patient ready for evaluation- chart flagged and notification provided. --13:31 Tee Santos R.N. 13:41 12/20/16. Patient ID band checked for patient name and birthdate. Clean catch urine collected with return of ronald-colored urine; sample sent to lab for urinalysis and culture. Specimen labeled in the presence of the patient. --13:41 Tee Santos R.N. ( Patient walked over to md with tech). --14:12 Kate Eddy 14:19 12/20/2016 Zofran ODT (Ondansetron) PO 4 mg given. Allergies verified and confirmed 5 rights. --14:19 Tee Santos R.N. 14:23 12/20/2016 Dilaudid (HYDROmorphone HCl PF) IM 2 mg given. Given in the left deltoid. Allergies verified, confirmed 5 rights and sedative warning given to the patient. --14:23 Tee Santos R.N. 14:24 12/20/16. Patient and family informed about reason for wait and about plan of care. --14:24 Tee Santos R.N. DISPOSITION / DISCHARGE 14:50 12/20/16. Condition at departure: improved. The goals identified in the patient's plan of care were met. No learning barriers present. Discharge instructions provided and reviewed with the patient. Reviewed warnings. Reviewed medication(s). Treatments reviewed. Patient verbalized understanding. Written instructions provided in Kinyarwanda. The patient was discharged by the nurse practitioner. He was discharged home and accompanied by family. He left the Emergency Department ambulatory and via private vehicle. Family member driving. FALL RISK ASSESSMENT: Fall risk assessment completed. No fall risk identified. --14:50 Tee Santos R.N. 14:49 12/20/16. BP: 131/72. HR: 81. RR: 12. O2 saturation: 100% on room air. Temp: 98.1 F (oral). --14:50 Tee Santos R.N. 14:50 12/20/16. Departure time: 14:50. --14:50 Tee Santos R.N. Locked/Released at 12/20/2016 14:55 by Tee Santos R.N.
--- NOTE | 2016-12-20 14:37 | ED ORDER SUMMARY ---
..... Patient: JAYMIE KING OrderSheet [facility] VisitID: [id number] [address] [place] [address] 31y, M Registration Date/Time: 12/20/2016 ORDER SHEET Weight: 92.9 kg (stated) Allergies: No Known Drug Allergy GENERAL ORDERS: UA-Culture if indicated Urgent (13:34 12/20/2016 JBoardley R.N. per protocol) (Ack 13:48 LMuller) (14:05 JBoardley R.N.) CT Abd/Pel wo Cont Urgent (14:07 12/20/2016 HBivens A.R.N.P.) (Ack 14:09 LMuller) (14:11 LMuller) MEDICATION ORDERS: Dilaudid IM 2 mg (HIGH ALERT MEDICATION, NOW) (14:07 12/20/2016 HBivens A.R.N.P.) (Ack 14:08 JBoardley R.N.) (14:23 JBoardley R.N.) Zofran ODT PO 4 mg (NOW) (14:08 12/20/2016 HBivens A.R.N.P.) (Ack 14:08 JBoardley R.N.) (14:19 JBoardley R.N.) IV FLUIDS: ORDER SHEET NOTES: [Electronically signed by Tee Santos R.N. (14:55 12/20/2016)] [Electronically signed by Stephania Jimenez.R.N.P. (15:08 12/20/2016)] [Electronically locked/signed by Tee Santos R.N. (14:55 12/20/2016)]
--- NOTE | 2016-12-20 14:37 | ED NURSING NOTES ---
Clinical Report - Nurses [facility] [address] [place] [address] 12/20/2016 13:00 Patient: JAYMIE KING TRIAGE Triage time 13:28. Acuity: LEVEL 4. Chief Complaint: FLANK PAIN. 13:12/20/16. 13:12/20/16. Alert. ( Pt was seen on Sunday at this ER and diagnosed with a kidney stone. Pt states that his pain is not getting any better.). SEPSIS SCREEN: Sepsis Screen. Negative (no infection suspected/documented). PIERCE COMA SCORE: Pierce Coma Scale: 15- eyes open spontaneously (4); best verbal response- oriented x 4 (5); best motor response- obeys commands (6). --13:34 Tee Santos R.N. 13:28 12/20/16. BP: 130/74. HR: 72. RR: 16. O2 saturation: 100% on room air. Temp: 98.2 F (oral). --13:34 Tee Santos R.N. Weight: 92.9 kg stated. Height/Length: 70 inches Per Patient. BMI: 29.4. --13:30 Tee Santos R.N. Medications Flomax Oral. --13:30 Tee Santos R.N. Vicodin Oral, PRN. --13:30 Tee Santos R.N. Medication/allergy information source: the patient. --13:34 Tee Santos R.N. Allergies No Known Drug Allergy. --13:30 Tee Santos R.N. History Arrived by private vehicle. Historian: patient. Accompanied by family. Primary physician (NONE). 13:12/20/16. Last oral intake by patient was (1 hr ago). 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 PAST MEDICAL HX: Immunizations not up to date. SOCIAL HX: Never smoker. No alcohol use or drug use. No recent travel. No infectious disease exposure. No known contact with a sick individual. ABUSE ASSESSMENT: No report of abuse. FALL RISK ASSESSMENT: Fall risk assessment completed. No fall risk identified. NUTRITIONAL RISK ASSESSMENT: The nutritional risk assessment revealed no deficiencies. FUNCTIONAL ASSESSMENT: Functional assessment: no impairments noted. LEARNING NEEDS ASSESSMENT: The learning needs assessment revealed no barriers. SKIN INTEGRITY ASSESSMENT: Skin integrity risk assessment completed. No skin integrity risk identified. --13:34 Tee Santos R.N. PROBLEMS: Ureterolithiasis. Nephrolithiasis. --13:30 Tee Santos R.N. ADDITIONAL SURGERIES: no known surgeries. Assessment 13:12/20/16. --13:34 Tee Santos R.N. Interventions 13:12/20/16. 13:12/20/16. ID and allergy band on patient. To treatment room. --13:34 Tee Santos R.N. PHYSICAL ASSESSMENT Ambulatory to room. GENERAL / NEURO / PSYCH: Oriented X 4. Appears in pain. CVS: Capillary refill less than 2 seconds. SKIN: Skin is warm and dry. --13:31 Tee Santos R.N. NURSING PROGRESS NOTES 13:12/20/16. The plan of care for this patient has been created. Patient gowned. Head of bed elevated. Reassurance given. Two patient identifiers checked. Call light placed in reach. Side rails up x 2. Bed placed in lowest position. Brakes of bed on. Brakes of chair on. --13:31 Tee Santos R.N. 13:31 12/20/16. Patient ready for evaluation- chart flagged and notification provided. --13:31 Tee Santos R.N. 13:41 12/20/16. Patient ID band checked for patient name and birthdate. Clean catch urine collected with return of ronald-colored urine; sample sent to lab for urinalysis and culture. Specimen labeled in the presence of the patient. --13:41 Tee Santos R.N. ( Patient walked over to la with tech). --14:12 Kate Eddy 14:19 12/20/2016 Zofran ODT (Ondansetron) PO 4 mg given. Allergies verified and confirmed 5 rights. --14:19 Tee Santos R.N. 14:23 12/20/2016 Dilaudid (HYDROmorphone HCl PF) IM 2 mg given. Given in the left deltoid. Allergies verified, confirmed 5 rights and sedative warning given to the patient. --14:23 Tee Santos R.N. 14:24 12/20/16. Patient and family informed about reason for wait and about plan of care. --14:24 Tee Santos R.N. DISPOSITION / DISCHARGE 14:50 12/20/16. Condition at departure: improved. The goals identified in the patient's plan of care were met. No learning barriers present. Discharge instructions provided and reviewed with the patient. Reviewed warnings. Reviewed medication(s). Treatments reviewed. Patient verbalized understanding. Written instructions provided in Frisian. The patient was discharged by the nurse practitioner. He was discharged home and accompanied by family. He left the Emergency Department ambulatory and via private vehicle. Family member driving. FALL RISK ASSESSMENT: Fall risk assessment completed. No fall risk identified. --14:50 Tee Santos R.N. 14:49 12/20/16. BP: 131/72. HR: 81. RR: 12. O2 saturation: 100% on room air. Temp: 98.1 F (oral). --14:50 Tee Santos R.N. 14:50 12/20/16. Departure time: 14:50. --14:50 Tee Santos R.N. Locked/Released at 12/20/2016 14:55 by Tee Santos R.N.
--- NOTE | 2016-12-20 14:37 | ED ORDER SUMMARY ---
..... Patient: JAYMIE KING OrderSheet [facility] VisitID: [id number] [address] [place] [address] 31y, M Registration Date/Time: 12/20/2016 ORDER SHEET Weight: 92.9 kg (stated) Allergies: No Known Drug Allergy GENERAL ORDERS: UA-Culture if indicated Urgent (13:34 12/20/2016 JBoardley R.N. per protocol) (Ack 13:48 LMuller) (14:05 JBoardley R.N.) CT Abd/Pel wo Cont Urgent (14:07 12/20/2016 HBivens A.R.N.P.) (Ack 14:09 LMuller) (14:11 LMuller) MEDICATION ORDERS: Dilaudid IM 2 mg (HIGH ALERT MEDICATION, NOW) (14:07 12/20/2016 HBivens A.R.N.P.) (Ack 14:08 JBoardley R.N.) (14:23 JBoardley R.N.) Zofran ODT PO 4 mg (NOW) (14:08 12/20/2016 HBivens A.R.N.P.) (Ack 14:08 JBoardley R.N.) (14:19 JBoardley R.N.) IV FLUIDS: ORDER SHEET NOTES: [Electronically signed by Tee Santos R.N. (14:55 12/20/2016)] [Electronically signed by Stephania Jimenez.R.N.P. (15:08 12/20/2016)] [Electronically locked/signed by Tee Santos R.N. (14:55 12/20/2016)]
--- NOTE | 2016-12-20 15:09 | ED MAR SUMMARY ---
..... Medication Administration Record [facility] [address] [place] [address] Patient: JAYMIE KING Visit ID: [id number] 31y, M Weight: 92.9 kg Height/Length: 70 in BMI: 29.4 ALLERGIES: No Known Drug Allergy Given 14:19 12/20/2016 Tee Santos R.N. Medication Administered: ZOFRAN ODT [PO] (ONDANSETRON), Dose: 4 mg PO. Medication Ordered: Zofran ODT PO 4 mg (NOW). Given 14:23 12/20/2016 Tee Santos R.N. Medication Administered: DILAUDID [IM] (HYDROMORPHONE HCL PF), Dose: 2 mg IM. Medication Ordered: Dilaudid IM 2 mg (HIGH ALERT MEDICATION, NOW).
--- NOTE | 2016-12-20 15:09 | ED MED RECONCILIATION SUMMARY ---
Patient: JAYMIE KING Medication Reconciliation Report [facility] VisitID: [id number] [address] [place] [address] 31y, M Registration Date/Time: 12/20/2016 Weight: 92.9 kg Height/Length: 70 in. BMI: 29.4 ALLERGIES: No Known Drug Allergy The patient's Home Medications are listed below: THE FOLLOWING MEDICATIONS NEED TO BE RECONCILED: Flomax Oral Vicodin Oral, PRN The source(s) of the original Home Medication information: patient The following Medications were given to the patient in the Emergency Department: Zofran ODT [PO] PO 4 mg, administered: 12/20/2016 2:19:00 PM Dilaudid [IM] IM 2 mg, administered: 12/20/2016 2:23:00 PM The following Medications were prescribed to the patient: Zofran 4 mg: Take 1 orally every six hours as needed for nausea/vomiting. Dispense ten (10). No refills. Substitution is permissible. -- Stephania Jimenez, A.R.N.P. Percocet 5 mg/325 mg: take 1 tablet orally every 6 hours as needed for pain. Dispense fifteen (15). No refills. Substitution is permissible. -- Stephania Jimenez A.R.N.P. Toradol 10 mg tablets: Take 1 tablet orally every 6 hours as needed. Dispense fifteen (15). No refills. Substitution is permissible. -- Stephania Jimenez A.R.N.P.
--- NOTE | 2016-12-20 15:09 | ED MED RECONCILIATION SUMMARY ---
Patient: JAYMIE KING Medication Reconciliation Report [facility] VisitID: [id number] [address] [place] [address] 31y, M Registration Date/Time: 12/20/2016 Weight: 92.9 kg Height/Length: 70 in. BMI: 29.4 ALLERGIES: No Known Drug Allergy The patient's Home Medications are listed below: THE FOLLOWING MEDICATIONS NEED TO BE RECONCILED: Flomax Oral Vicodin Oral, PRN The source(s) of the original Home Medication information: patient The following Medications were given to the patient in the Emergency Department: Zofran ODT [PO] PO 4 mg, administered: 12/20/2016 2:19:00 PM Dilaudid [IM] IM 2 mg, administered: 12/20/2016 2:23:00 PM The following Medications were prescribed to the patient: Zofran 4 mg: Take 1 orally every six hours as needed for nausea/vomiting. Dispense ten (10). No refills. Substitution is permissible. -- Stephania Jimenez, A.R.N.P. Percocet 5 mg/325 mg: take 1 tablet orally every 6 hours as needed for pain. Dispense fifteen (15). No refills. Substitution is permissible. -- Stephania Jimenez A.R.N.P. Toradol 10 mg tablets: Take 1 tablet orally every 6 hours as needed. Dispense fifteen (15). No refills. Substitution is permissible. -- Stephania Jimenez A.R.N.P.
--- NOTE | 2016-12-20 15:09 | ED MAR SUMMARY ---
..... Medication Administration Record [facility] [address] [place] [address] Patient: JAYMIE KING Visit ID: [id number] 31y, M Weight: 92.9 kg Height/Length: 70 in BMI: 29.4 ALLERGIES: No Known Drug Allergy Given 14:19 12/20/2016 Tee Santos R.N. Medication Administered: ZOFRAN ODT [PO] (ONDANSETRON), Dose: 4 mg PO. Medication Ordered: Zofran ODT PO 4 mg (NOW). Given 14:23 12/20/2016 Tee Santos R.N. Medication Administered: DILAUDID [IM] (HYDROMORPHONE HCL PF), Dose: 2 mg IM. Medication Ordered: Dilaudid IM 2 mg (HIGH ALERT MEDICATION, NOW).
--- NOTE | 2016-12-20 15:09 | ED DISCHARGE INSTRUCTIONS ---
Patient: JAYMIE KING General Instructions [facility] VisitID: [id number] [address] [place] [address] 31y, M Registration Date/Time: 12/20/2016 Ureterolithiasis (single stone) in the left ureter with renal colic, hydronephrosis and hematuria. No acute pyelonephritis or urinary tract infection. INSTRUCTIONS Drink plenty of fluids for the next 24 hours until better. (continue to strain all urine, do NOT mix pain meds, and over the counter vitamin C, as discussed). Warnings: GENERAL WARNINGS: Return or contact your physician immediately if your condition worsens or changes unexpectedly, if not improving as expected, or if other problems arise. SPECIFICALLY, return if you develop pain in the abdomen or pelvis, fever, the inability to keep fluids down, blood in vomitus, blood in diarrhea, fainting or lightheadedness. Prescription Medications: Zofran 4 mg: Take 1 orally every six hours as needed for nausea/vomiting. Dispense ten (10). No refills. Substitution is permissible. Percocet 5 mg/325 mg: take 1 tablet orally every 6 hours as needed for pain. Dispense fifteen (15). No refills. Substitution is permissible. Toradol 10 mg tablets: Take 1 tablet orally every 6 hours as needed. Dispense fifteen (15). No refills. Substitution is permissible. Understanding of the discharge instructions verbalized by patient. Follow-up with: Checo Esquivel MD, Urology, , [address] [place] [address], [place] [phone] Follow up tomorrow even if well. Call for an appointment. Summary of care provided to patient. ADDITIONAL INFORMATION Kidney Stone (W/ Colic) The sharp cramping pain and nausea/vomiting that you have is due to a small stone which has formed in the kidney and is now passing down a narrow tube (ureter) on its way to your bladder. Once it reaches your bladder, the pain will stop. The stone may pass in your urine stream in one piece. [The size may be 1/16" to 1/4" (1-6mm)]. Or, the stone may also break up into demian fragments which you may not even notice. Once you have had a kidney stone, you are at risk for developing another one in the future. Home Care: Drink plenty of fluids (at least 8 to 10 glasses of water a day). Most stones will pass on their own, but may take from a few hours to a few days. Sometimes the stone is too large to pass by itself and special methods will have to be used to remove the stone. Each time you urinate, do so in a jar. Pour the urine from the jar through the strainer and into the toilet. Continue doing this until 24 hours after your pain stops. By then, if there was a kidney stone, it should pass from your bladder. Some stones dissolve into sand-like particles and pass right through the strainer. In that case, you wont ever see a stone. Save any stone that you find in the strainer and bring it to your doctor for analysis. It may be possible to prevent certain types of stones from forming. Therefore, it is important to know what kind of stone you have. Try to stay as active as possible since this will help the stone pass. Do not stay in bed unless your pain prevents you from getting up. You may notice a red, pink or brown color to your urine. This is normal while passing a kidney stone. Follow Up with your doctor or return to this facility if the pain lasts more than 48 hours. Get Prompt Medical Attention if any of the following occur: Pain that is not controlled by the medicine given Repeated vomiting or unable to keep down fluids Weakness, dizziness or fainting Fever of 100.4F (38C) or higher, or as directed by your healthcare provider Passage of solid red or brown urine (can't see through it) or urine with lots of blood clots Unable to pass urine for 8 hours and increasing bladder pressure Ondansetron Oral disintegrating tablet What is this medicine? ONDANSETRON (on AKASH se barbara) is used to treat nausea and vomiting caused by chemotherapy. It is also used to prevent or treat nausea and vomiting after surgery. How should I use this medicine? These tablets are made to dissolve in the mouth. Do not try to push the tablet through the foil backing. With dry hands, peel away the foil backing and gently remove the tablet. Place the tablet in the mouth and allow it to dissolve, then swallow. While you may take these tablets with water, it is not necessary to do so. Talk to your sand plant attendant regarding the use of this medicine in children. Special care may be needed. What side effects may I notice from receiving this medicine? Side effects that you should report to your doctor or health career professional as soon as possible: allergic reactions like skin rash, itching or hives, swelling of the face, lips, or tongue breathing problems dizziness fast or irregular heartbeat feeling faint or lightheaded, falls fever and chills swelling of the hands and feet tightness in the chest Side effects that usually do not require medical attention (report to your doctor or health career professional if they continue or are bothersome): constipation or diarrhea headache What may interact with this medicine? Do not take this medicine with any of the following medications: -apomorphine -cisapride -dofetilide -dronedarone -pimozide -thioridazine -ziprasidone This medicine may also interact with the following medications: -carbamazepine -phenytoin -rifampicin -tramadol -other medicines that prolong the QT interval (cause an abnormal heart rhythm) What if I miss a dose? If you miss a dose, take it as soon as you can. If it is almost time for your next dose, take only that dose. Do not take double or extra doses. Where should I keep my medicine? Keep out of the reach of children. Store between 2 and 30 degrees C (36 and 86 degrees F). Throw away any unused medicine after the expiration date. What should I tell my health care provider before I take this medicine? They need to know if you have any of these conditions: heart disease history of irregular heartbeat liver disease low levels of magnesium or potassium in the blood an unusual or allergic reaction to ondansetron, granisetron, other medicines, foods, dyes, or preservatives or trying to get breast-feeding What should I watch for while using this medicine? Check with your doctor or health career professional as soon as you can if you have any sign of an allergic reaction. Oxycodone Hydrochloride, Acetaminophen Oral tablet What is this medicine? ACETAMINOPHEN; OXYCODONE (a set a QUINCY albert fen; ox i KOE done) is a pain reliever. It is used to treat mild to moderate pain. How should I use this medicine? Take this medicine by mouth with a full glass of water. Follow the directions on the prescription label. Take your medicine at regular intervals. Do not take your medicine more often than directed. Talk to your sand plant attendant regarding the use of this medicine in children. Special care may be needed. Patients over 65 years old may have a stronger reaction and need a smaller dose. What side effects may I notice from receiving this medicine? Side effects that you should report to your doctor or health career professional as soon as possible: allergic reactions like skin rash, itching or hives, swelling of the face, lips, or tongue breathing difficulties, wheezing confusion light headedness or fainting spells severe stomach pain yellowing of the skin or the whites of the eyes Side effects that usually do not require medical attention (report to your doctor or health career professional if they continue or are bothersome): dizziness drowsiness nausea vomiting What may interact with this medicine? alcohol antihistamines barbiturates like amobarbital, butalbital, butabarbital, methohexital, pentobarbital, phenobarbital, thiopental, and secobarbital benztropine drugs for bladder problems like solifenacin, trospium, oxybutynin, tolterodine, hyoscyamine, and methscopolamine drugs for breathing problems like ipratropium and tiotropium drugs for certain stomach or intestine problems like propantheline, homatropine methylbromide, glycopyrrolate, atropine, belladonna, and dicyclomine general anesthetics like etomidate, ketamine, nitrous oxide, propofol, desflurane, enflurane, halothane, isoflurane, and sevoflurane medicines for depression, anxiety, or psychotic disturbances medicines for sleep muscle relaxants naltrexone narcotic medicines (opiates) for pain phenothiazines like perphenazine, thioridazine, chlorpromazine, mesoridazine, fluphenazine, prochlorperazine, promazine, and trifluoperazine scopolamine tramadol trihexyphenidyl What if I miss a dose? If you miss a dose, take it as soon as you can. If it is almost time for your next dose, take only that dose. Do not take double or extra doses. Where should I keep my medicine? Keep out of the reach of children. This medicine can be abused. Keep your medicine in a safe place to protect it from theft. Do not share this medicine with anyone. Selling or giving away this medicine is dangerous and against the law. Store at room temperature between 20 and 25 degrees C (68 and 77 degrees F). Keep container tightly closed. Protect from light. This medicine may cause accidental overdose and if it is taken by other adults, children, or pets. Flush any unused medicine down the toilet to reduce the chance of harm. Do not use the medicine after the expiration date. What should I tell my health care provider before I take this medicine? They need to know if you have any of these conditions: brain tumor Crohn's disease, inflammatory bowel disease, or ulcerative colitis drink more than 3 alcohol containing drinks per day drug abuse or addiction head injury heart or circulation problems kidney disease or problems going to the bathroom liver disease lung disease, asthma, or breathing problems an unusual or allergic reaction to acetaminophen, oxycodone, other opioid analgesics, other medicines, foods, dyes, or preservatives or trying to get breast-feeding What should I watch for while using this medicine? Tell your doctor or health career professional if your pain does not go away, if it gets worse, or if you have new or a different type of pain. You may develop tolerance to the medicine. Tolerance means that you will need a higher dose of the medication for pain relief. Tolerance is normal and is expected if you take this medicine for a long time. Do not suddenly stop taking your medicine because you may develop a severe reaction. Your body becomes used to the medicine. This does NOT mean you are addicted. Addiction is a behavior related to getting and using a drug for a non-medical reason. If you have pain, you have a medical reason to take pain medicine. Your doctor will tell you how much medicine to take. If your doctor wants you to stop the medicine, the dose will be slowly lowered over time to avoid any side effects. You may get drowsy or dizzy. Do not drive, use machinery, or do anything that needs mental alertness until you know how this medicine affects you. Do not stand or sit up quickly, especially if you are an older patient. This reduces the risk of dizzy or fainting spells. Alcohol may interfere with the effect of this medicine. Avoid alcoholic drinks. There are different types of narcotic medicines (opiates) for pain. If you take more than one type at the same time, you may have more side effects. Give your health care provider a list of all medicines you use. Your doctor will tell you how much medicine to take. Do not take more medicine than directed. Call emergency for help if you have problems breathing. The medicine will cause constipation. Try to have a bowel movement at least every 2 to 3 days. If you do not have a bowel movement for 3 days, call your doctor or health career professional. Do not take Tylenol (acetaminophen) or medicines that have acetaminophen with this medicine. Too much acetaminophen can be very dangerous. Many nonprescription medicines contain acetaminophen. Always read the labels carefully to avoid taking more acetaminophen. Ketorolac Tromethamine Oral tablet What is this medicine? KETOROLAC (laureano toe ROLE ak) is a non-steroidal anti-inflammatory drug (NSAID). It is used for a short while to treat moderate to severe pain, including pain after surgery. It should not be used for more than 5 days. How should I use this medicine? Take this medicine by mouth with a full glass of water. Follow the directions on the prescription label. Take your medicine at regular intervals. Do not take your medicine more often than directed. Do not take more than the recommended dose. A special MedGuide will be given to you by the pharmacist with each prescription and refill. Be sure to read this information carefully each time. Talk to your sand plant attendant regarding the use of this medicine in children. While this drug may be prescribed for children as young as 16 years of age for selected conditions, precautions do apply. Patients over 65 years old may have a stronger reaction and need a smaller dose. What side effects may I notice from receiving this medicine? Side effects that you should report to your doctor or health career professional as soon as possible: allergic reactions like skin rash, itching or hives, swelling of the face, lips, or tongue black or tarry stools breathing problems changes in vision chest pain high blood pressure nausea or vomiting redness, blistering, peeling or loosening of the skin, including inside the mouth severe abdominal pain slurred speech or weakness on one side of the body unexplained weight gain or swelling unusual bleeding or bruising unusually weak or tired yellowing of eyes or skin Side effects that usually do not require medical attention (report to your doctor or health career professional if they continue or are bothersome): diarrhea dizziness headache heartburn What may interact with this medicine? Do not take this medicine with any of the following medications: aspirin and aspirin-like medicines cidofovir methotrexate NSAIDs, medicines for pain and inflammation, like ibuprofen or naproxen pemetrexed probenecid This medicine may also interact with the following medications: alcohol alendronate alprazolam carbamazepine cyclosporine diuretics flavocoxid fluoxetine ginkgo lithium medicines for high blood pressure like enalapril medicines that affect platelets like pentoxifylline medicines that treat or prevent blood clots like heparin, warfarin muscle relaxants phenytoin steroid medicines like prednisone or cortisone thiothixene What if I miss a dose? If you miss a dose, take it as soon as you can. If it is almost time for your next dose, take only that dose. Do not take double or extra doses. Where should I keep my medicine? Keep out of the reach of children. Store at room temperature between 20 and 25 degrees C (68 and 77 degrees F). Throw away any unused medicine after the expiration date. What should I tell my health care provider before I take this medicine? They need to know if you have any of these conditions: asthma bleeding problems like hemophilia cigarette smoker drink more than 3 alcohol containing drinks a day heart disease or circulation problems such as heart failure or leg edema (fluid retention) high blood pressure kidney disease liver disease stomach bleeding or ulcers an unusual or allergic reaction to ketorolac, aspirin, other NSAIDs, other medicines, foods, dyes, or preservatives or trying to get breast-feeding What should I watch for while using this medicine? Tell your doctor or health career professional if your pain does not get better. Talk to your doctor before taking another medicine for pain. Do not treat yourself. This medicine does not prevent heart attack or stroke. In fact, this medicine may increase the chance of a heart attack or stroke. The chance may increase with longer use of this medicine and in people who have heart disease. If you take aspirin to prevent heart attack or stroke, talk with your doctor or health career professional. Do not take medicines such as ibuprofen and naproxen with this medicine. Side effects such as stomach upset, nausea, or ulcers may be more likely to occur. Many medicines available without a prescription should not be taken with this medicine. This medicine can cause ulcers and bleeding in the stomach and intestines at any time during treatment. Do not smoke cigarettes or drink alcohol. These increase irritation to your stomach and can make it more susceptible to damage from this medicine. Ulcers and bleeding can happen without warning symptoms and can cause . You may get drowsy or dizzy. Do not drive, use machinery, or do anything that needs mental alertness until you know how this medicine affects you. Do not stand or sit up quickly, especially if you are an older patient. This reduces the risk of dizzy or fainting spells. This medicine can cause you to bleed more easily. Try to avoid damage to your teeth and gums when you brush or floss your teeth. You have been given the following additional information: Kidney Stone W/ Colic Ondansetron Oral disintegrating tablet Oxycodone Hydrochloride, Acetaminophen Oral tablet Ketorolac Tromethamine Oral tablet (Electronically signed by Stephania Jimenez A.R.N.P. 12/20/2016 15:08)
== END 2016-12-20 14:50 | disposition home or self-care (01) ==
LOC: ED SRH 12:59
DX: N13.2 Hydronephrosis with renal and ureteral calculous obstruction (principal); R31.9 Hematuria, unspecified; Z87.442 Personal history of urinary calculi
CPT/HCPCS: 90004